=== PATIENT | male | born 1970 | race Asian ===

== ENCOUNTER → 2017-02-28 | Outpatient (CLI) | payer OTHER ==
[~2017-02-28] MED LIST: GADOBUTROL 10 MMOL/10 ML VIAL ONE
== END | disposition home or self-care (01) ==
LOC: RAD 07:17
PROVIDERS: ATTEND Family Medicine
DX: R16.0 Hepatomegaly, not elsewhere classified (principal); K80.20 Calculus of gallbladder without cholecystitis without obstruction; D49.0 Neoplasm of unspecified behavior of digestive system
CPT/HCPCS: 74183; A9585

== ENCOUNTER → 2018-03-07 | Outpatient (CLI) | payer OTHER | END | disposition home or self-care (01) | LOC: RAD 08:43 | PROVIDERS: ATTEND Family Medicine | DX: D13.4 Benign neoplasm of liver (principal); R16.0 Hepatomegaly, not elsewhere classified | CPT/HCPCS: 74183; A9585 ==